=== PATIENT | male | born 1995 | race Two or more races ===

== ENCOUNTER → 2023-05-11 | Outpatient (REF) | payer OTHER ==
[2023-05-11 22:59] LABS: Trichomonas vaginalis (AMP) NOT DETECTED (NEGATIVE)
[2023-05-11 23:23] LABS: GC DNA AMPLIFICATION NEGATIVE (NEGATIVE)
== END ==
LOC: M LAB REF 21:11
PROVIDERS: ATTEND Physician Assistant
DX: Z11.3 Encounter for screening for infections with a predominantly sexual mode of transmission (principal)